=== PATIENT | male | born 1955 | race Hispanic/Latino ===

== ENCOUNTER 2018-01-01 08:06 | Day surgery (SDC) | payer OTHER ==
[~2018-01-01] VITALS: Ht 154.9 cm; Wt 82.1 kg
[~2018-01-01 08:06] MED LIST: ACET-2900 PO; ASPI-555 PO; BACL10TA PO; FAMO20TA8 PO; FURO40TA5 PO; SERT50TA12 PO; SIMV40TA5 PO; SODIUM CHLORIDE 0.9% 1000ML 1,000 ML IV ONE; VALS160T29 PO
[2018-01-01 09:12] VITALS: BP 128/64
== END 2018-01-01 10:43 | disposition home or self-care (01) ==
LOC: DAH 08:06 → ENDO 08:06
PROVIDERS: ATTEND Internal Medicine Gastroenterology
DX: Z12.11 Encounter for screening for malignant neoplasm of colon (principal); R00.1 Bradycardia, unspecified; R94.31 Abnormal electrocardiogram [ECG] [EKG]; Z53.8 Procedure and treatment not carried out for other reasons
CPT/HCPCS: 93005; J7030

== ENCOUNTER → 2018-02-03 | Outpatient (CLI) | payer OTHER ==
[~2018-02-03] MED LIST changes: -SODIUM CHLORIDE 0.9% 1000ML 1,000 ML IV ONE
== END | disposition home or self-care (01) ==
LOC: SHCH 15:34
PROVIDERS: ATTEND Internal Medicine Cardiovascular Disease
DX: I34.0 Nonrheumatic mitral (valve) insufficiency (principal); I10 Essential (primary) hypertension
CPT/HCPCS: 93306

== ENCOUNTER → 2022-08-09 | Outpatient (CLI) | payer OTHER ==
[~2022-08-09] MED LIST changes: -ACET-2900 PO; +ACET-3194 PO; -ASPI-555 PO; +ASPI-556 PO; +LOSA25TA41 PO; +SERT-439 PO; -SERT50TA12 PO; +SIMV-46 PO; -SIMV40TA5 PO
== END | disposition home or self-care (01) ==
LOC: SHCH 09:48
PROVIDERS: ATTEND Internal Medicine Cardiovascular Disease
DX: I11.9 Hypertensive heart disease without heart failure (principal); R07.9 Chest pain, unspecified
CPT/HCPCS: 93306

== ENCOUNTER → 2022-12-10 | Outpatient (CLI) | payer OTHER ==
[2022-12-10 16:42] LABS: CREATININE 0.9 mg/dL (0.5-1.5); POTASSIUM 3.6 mmol/L (3.5-5.1); TOTAL PROTEIN, SERUM 7.6 g/dL (6.0-8.3)
== END | disposition home or self-care (01) ==
LOC: LAB 14:49
PROVIDERS: ATTEND Internal Medicine Cardiovascular Disease
DX: I10 Essential (primary) hypertension (principal)
CPT/HCPCS: 36415; 80053

== ENCOUNTER → 2022-12-24 | Outpatient (CLI) | payer OTHER ==
[~2022-12-24] MED LIST changes: +IOHEXOL 350 MG/ML 100ML INFUS..BTL IV ONE
== END | disposition home or self-care (01) ==
LOC: CANPRECLI → RAH 08:28
PROVIDERS: ATTEND Internal Medicine Cardiovascular Disease
DX: I25.10 Atherosclerotic heart disease of native coronary artery without angina pectoris (principal); I10 Essential (primary) hypertension; I73.9 Peripheral vascular disease, unspecified
CPT/HCPCS: 75574; Q9967

== ENCOUNTER → 2023-01-17 | Outpatient (CLI) | payer OTHER ==
[~2023-01-17] MED LIST changes: -IOHEXOL 350 MG/ML 100ML INFUS..BTL IV ONE
== END | disposition home or self-care (01) ==
LOC: SHCH 08:25
PROVIDERS: ATTEND Internal Medicine Cardiovascular Disease
DX: I70.293 Other atherosclerosis of native arteries of extremities, bilateral legs (principal)
CPT/HCPCS: 93925

== ENCOUNTER → 2024-04-28 | Outpatient (CLI) | payer OTHER | END | disposition home or self-care (01) | LOC: SHCH 14:04 | PROVIDERS: ATTEND Internal Medicine Cardiovascular Disease | DX: I10 Essential (primary) hypertension (principal); E78.5 Hyperlipidemia, unspecified | CPT/HCPCS: 93306 ==

== ENCOUNTER 2024-09-05 08:01 | Day surgery (SDC) | payer OTHER ==
[2024-09-02 09:51] LABS: BASOPHILS # (AUTO) 0.03 K/uL (0.00-0.20); BASOPHILS % (AUTO) 0.5 % (0.0-5.0); EOSINOPHILS # (AUTO) 0.14 K/uL (0.00-0.70); EOSINOPHILS % (AUTO) 2.2 % (0.0-8.0); HEMATOCRIT 44.8 % (42-54); IMMATURE GRANULOCYTE ABSOLUTE 0.03 K/uL (0-1); LYMPHOCYTES # (AUTO) 2.2 K/uL (1.0-4.8); LYMPHOCYTES % (AUTO) 34.9 % (21.0-51.0); MEAN CORPUSCULAR HEMOGLOBIN 28.7 pg (27.0-33.0); MEAN CORPUSCULAR HGB CONC 33.3 g/dL (32.0-36.0); MEAN CORPUSCULAR VOLUME 86.3 fL (79-99); MONOCYTES # (AUTO) 0.5 K/uL (0.1-1.0); MONOCYTES % (AUTO) 7.2 % (3.0-13.0); NEUTROPHILS # (AUTO) 3.4 K/uL (1.8-7.7); NEUTROPHILS % (AUTO) 54.7 % (40.0-77.0); PLATELET COUNT (AUTO) 194 K/uL (130-400); RED BLOOD CELL COUNT(AUTO) 5.19 MIL/uL (4.50-6.20); RED CELL DISTRIBUTION WIDTH 14.3 % (11.0-15.5); WHITE BLOOD COUNT (AUTO) 6.3 K/uL (4.8-10.8)
[2024-09-02 10:00] LABS: POTASSIUM 4.2 mmol/L (3.5-5.1)
[2024-09-02 10:04] LABS: APPEARANCE,URINE CLEAR (CLEAR); BILIRUBIN,URINE NEGATIVE (NEGATIVE); COLOR,URINE LIGHT-YELLOW (YELLOW); GLUCOSE, URINE (UA) NEGATIVE (NEGATIVE); KETONES,URINE NEGATIVE (NEGATIVE); LEUKOCYTE ESTERASE ,URINE NEGATIVE Leu/uL (NEGATIVE); NITRATE,URINE NEGATIVE (NEGATIVE); OCCULT BLOOD,URINE NEGATIVE (NEGATIVE); PROTEIN,URINE NEGATIVE (NEGATIVE); UROBILINOGEN,URINE 0.2 mg/dL (0.2-1.0)
[2024-09-02 10:06] VITALS: BP 161/69; PULSE 71; RESP 18; TEMP 99.1
[2024-09-02 10:06] LABS: ADD UA MICROSCOPIC NO
[2024-09-02 10:11] LABS: INR 1.01 (0.85-1.15); PROTHROMBIN TIME 10.9 SEC (9.6-11.6)
[2024-09-02 10:12] LABS: PARTIAL THROMBOPLASTIN TIME 26.1 SEC (26.3-35.5)
[2024-09-02 10:28] LABS: B-TYPE NATRIURETIC PEPTIDE 12 pg/mL (0-100)
--- NOTE | 2024-09-02 10:49 | HMCIMG ---
CHEST 1VW HISTORY: Preop COMPARISON: May 02, 2018 FINDINGS: A frontal projection of the chest was obtained. No acute pulmonary infiltrates is seen. The heart is borderline enlarged. Degenerative changes are seen. Aortic calcifications are seen. IMPRESSION: 1. No acute pulmonary infiltrate is seen.
--- NOTE | 2024-09-02 10:50 | NUR ---
REPORT DR RAE INFORMED OF HEMORRHOID INFECTION AND ANTIBIOTICS PRESCRIBED, PT WITH LOW GRADE TEMP. OK TO PROCEED AND REEVAL ON THURSDAY
--- NOTE | 2024-09-02 10:52 | EKG ---
[facility] Test Date: 2024-09-02 Test Time: 10:37:31 Pat Name: ROXI JIMENEZ Department: [facility] Room: Gender: M Spike Machine Feeder: [id number] : 1955 Requested By: Mercy RAE Order Number: [id number] Reading MD: Theo Ruiz Measurements Intervals [place] Rate: 68 P: 40 LA: 158 QRS: -79 QRSD: 114 T: 87 QT: 402 QTc: 428 Interpretive Statements Sinus rhythm LAD, consider left anterior fascicular block Probable anterior infarct, age indeterminate Compared to ECG 05/02/2018 17:16:23 No significant changes Electronically Signed On 09-04-2024 17:35:14 SNACK BAR ATTENDANT by Theo Ruiz Please click the below link to view image of tracing.
[2024-09-05] VITALS (15 sets, daily range): BP systolic 105–157; BP diastolic 43–73; PULSE 44–68; RESP 13–18; TEMP 97.5–97.9
[~2024-09-05] VITALS: Ht 154.9 cm; Wt 89.1 kg
[~2024-09-05 08:01] MED LIST changes: -ACET-3194 PO; +AMOX1TAB16 PO; +ASPI-1005 PO; +ATOR40TA71 PO; -BACL10TA PO; +CHLO25TA3 PO; +CLOP75TA32 PO; +DEXAMETHASONE OU; -FAMO20TA8 PO; -FURO40TA5 PO; +ISOS20TA85 PO; -LOSA25TA41 PO; +LOTE8.3D OP; +METR-172 PO; +NEOMYCIN OU; +NITR0.4T50 SL; +PANT40TA54 PO; +POLYMYXIN B OU; -SERT-439 PO; -SIMV-46 PO; +TAMS-1 PO; +TERB250T89 PO; +TYLENOL ARTHRITIS PO; -VALS160T29 PO
[2024-09-05] MEDS: 0.9%NACL 1000ML 1,000 ML IV SCH (08:55)
[2024-09-05] MEDS ORDERED: VALS320T16 PO (09:09)
[2024-09-05] MEDS ORDERED: LIDOCAINE HCL 400MG/20ML VIAL ONE (13:13)
[2024-09-05] MEDS ORDERED: niCARDIpine 25MG INJ IV ONE (13:14)
[2024-09-05] MEDS ORDERED: HEParin 10,000 UNIT/10ML (1,000 UNIT/ML) VIAL ONE (13:14)
[2024-09-05] MEDS ORDERED: HEParin-NS 1,000 UNIT/500 ML 1,000 ML IV ONE (13:14)
[2024-09-05] MEDS ORDERED: SODIUM BICARB 50MEQ 50ML VIAL 50 ML ONE (13:14)
[2024-09-05] MEDS ORDERED: IOHEXOL 350 MG/ML 100ML INFUS..BTL IV ONE (13:14)
[2024-09-05] MEDS ORDERED: NITROGLYCERIN 50MG VIAL ONE (13:15)
[2024-09-05] MEDS ORDERED: MEPERIDINE-PF 25 MG/ML SYG ONE ×3 (13:26→13:43)
[2024-09-05] MEDS ORDERED: MIDAZOLAM HCL 1 MG/ML 2ML VIAL ONE ×3 (13:26→13:43)
[2024-09-05] MEDS ORDERED: ASPIRIN 325MG EC TAB PO ONE (14:27)
[2024-09-05] MEDS ORDERED: cloPIDOgrel 300MG TAB ONE (14:27)
[2024-09-05] MEDS ORDERED: 0.9%NACL 1000ML 1,000 ML IV SCH (15:00)
--- NOTE | 2024-09-05 15:37 | PR ---
PROCEDURES: * Selective right and left coronary arteriogram. * Balloon angioplasty and stenting of the LAD. * Balloon angioplasty and stenting of the circumflex. * Conscious sedation. INDICATIONS: * Recurrent angina. * Abnormal coronary CTA. 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 COMPLICATIONS: None. TOTAL CONTRAST: 100 mL. APPROACH: Right radial approach. DESCRIPTION OF PROCEDURE: The patient was taken to the cardiac cardiac cath rn after the appropriate operative consents were signed. He was prepped and draped in the usual fashion. After conscious sedation was administered, the right radial artery region was infiltrated with 2% Xylocaine without epinephrine. A 6-Romanian slender radial sheath was advanced in retrograde fashion over the indwelling wire by the modified Seldinger technique. A TIG 4 catheter was advanced and positioned selectively in the right coronary artery. This was imaged in multiplane. This was a moderately large vessel that gave rise to sinus vince artery, acute marginal, large PDA and large branching PLVB system. The proximal RCA had a 50% lesion and the distal RCA had a tandem 40% stenotic lesions. The catheter would not engaged or seat well in the left main, so we elected to utilize JL3.5, which was exchanged over an indwelling wire and engaged in the ostium of the left main. The left main was imaged in multiplane. This was a long vessel that was free of significant stenotic lesions. It bifurcated into LAD, and circumflex. Circumflex was a moderately sized vessel that had an 80% lesion in its proximal portion before giving rise to an obtuse marginal 1 that was tortuous. The ongoing circumflex was occluded distal to the obtuse marginal 1, however, this was a small vessel that was seen to fill retrograde via right to left collaterals. The LAD was a large vessel that gave rise to several diagonal branches and septal perforators. The first diagonal was a moderately sized vessel that gave rise to 2 branches. It had a 70% lesion in its proximal portion. The LAD was large vessel that had 99% stenotic lesion just distal to the first septal income tax auditor. There was LUISANA 0-1.5 in the LAD. Given the patient's presentation, symptoms, and his abnormalities on his ancillary studies, we elected to proceed with revascularization of the LAD and a circumflex. The patient had XB3 catheter selected, which was advanced over an indwelling wire and engaged into the left main. A 0.014 wire was advanced, traversed the lesion in the LAD. The lesion was predilated with a 3.0 NC balloon, which improved the LUISANA flow to 2. At this point, an Barrera 3.0 x 34 drug-eluting stent was advanced in the area of stenosis and inflated and dilated to a 3.1 mm size with good final angiographic results. The wire was then redirected and engaged into the OM. The circumflex was managed with placement of a 3.0 x 15 Barrera Willoughby stent, which was deployed to 14 atmospheres at 3.1 mm size with good angiographic results. At this point, the catheter was removed over an indwelling wire. A sheath of the radial artery was removed and a radial band was applied. The patient tolerated the procedure well and left the cardiac cardiac cath rn in stable condition. FINAL IMPRESSION: * Severe coronary artery disease. * Apical aneurysmal segment by noninvasive studies with probable thrombus. * Successful balloon angioplasty and stent placement in the proximal to mid LAD with a 3.0 x 34 drug-eluting Barrera Willoughby stent. * Successful balloon angioplasty and stenting of the circumflex with a 3.0 x 15 Barrera Willoughby drug-eluting stent with good angiographic results. PLAN: Continue to optimize medical management. TID: [id number] RECEIPT: [id number]
--- NOTE | 2024-09-05 17:00 | NUR ---
REPORT RCV'D FROM NELLIE MARCH, RN, PT FAMILY AT BEDSIDE. RT RADIAL VASC BAND REMOVED W CLEANING AND ASEPTIC DSG APPLIED. DISTAL PULSES INTACT, PT DENIES ANY NEURO DEFICITS. ENG 7 SPAN INSTRUCTIONS COVERED WITH BILINGUAL SON PRESENT. MANY QUESTIONS ANSWERED AND CONFIRMED UNDERSTANDING.
--- NOTE | 2024-09-05 18:30 | NUR ---
lt ac piv removed w tip intact, dsg applied, assist w street clothes. Rt radial site, distal FUEL OPERATOR and pulses baseline. pt & deny necessity or c/o, with all belongings to sons car & care in no noted or verbalized distress. STENT CARD & DIAGRAMS PREVIOUSLY GIVEN TO PATIENT. COPIES ENG & SPAN INSTRUCTIONS. STRESSED IMPORTANCE OF ASA & PLAVIX.
== END 2024-09-05 18:40 | disposition home or self-care (01) ==
LOC: DAH 08:01
PROVIDERS: ATTEND Internal Medicine Cardiovascular Disease
DX: I25.118 Atherosclerotic heart disease of native coronary artery with other forms of angina pectoris (principal); R94.39 Abnormal result of other cardiovascular function study; I11.0 Hypertensive heart disease with heart failure; I50.42 Chronic combined systolic (congestive) and diastolic (congestive) heart failure; I25.5 Ischemic cardiomyopathy; R06.02 Shortness of breath; E66.9 Obesity, unspecified; M19.90 Unspecified osteoarthritis, unspecified site; Z95.5 Presence of coronary angioplasty implant and graft; E78.5 Hyperlipidemia, unspecified; Z68.38 Body mass index [BMI] 38.0-38.9, adult; Z79.899 Other long term (current) drug therapy
CPT/HCPCS: 80048; 83880; 85025; 85610; 85730; 81003; 36415; 71045; 93005; 93454; 85347; A4223 ×3; Q9965; C1769; C1725; C1874 ×2; A4649; C1894; C1887; J3490 ×4; J7030; J1644 ×2; J2250 ×3; J2175 ×3; Q9967; A4215; A4222; A4221; A4663; A4216; A4606; C9600 ×2; 96360; 96361; 99156; 99157; C9601

== ENCOUNTER → 2024-12-15 | Outpatient (CLI) | payer OTHER ==
[~2024-12-15] MED LIST changes: +ISOS-58 PO; -ISOS20TA85 PO; +VALS320T16 PO
--- NOTE | 2024-12-19 15:11 | HMCSR ---
APPROVED REPORT Bilateral Lower Extremity Venous Study for DVT., Venous Competence. Indications venous Insuff Vein Imaging CFV (R): Normal flow, augmentation and compression. No evidence of DVT. 11.2mm 561ms of reflux. SFJ (R): Normal flow, augmentation and compression. No evidence of DVT. FEM (R): Normal flow, augmentation and compression. No evidence of DVT. POP (R): , Partially Compressible, Thrombus DFV (R): Normal flow, augmentation and compression. No evidence of DVT. PTV (R): Normal flow, augmentation and compression. No evidence of DVT. Peroneals (R): Normal flow, augmentation and compression. No evidence of DVT. CFV (L): Normal flow, augmentation and compression. No evidence of DVT. 10.6mm 239ms of reflux. SFJ (L): Normal flow, augmentation and compression. No evidence of DVT. FEM (L): Normal flow, augmentation and compression. No evidence of DVT. POP (L): Normal flow, augmentation and compression. No evidence of DVT. DFV (L): Normal flow, augmentation and compression. No evidence of DVT. PTV (L): Normal flow, augmentation and compression. No evidence of DVT. Peroneals (L): Normal flow, augmentation and compression. No evidence of DVT. Technologist Impression Positive for DVT on RT. Pop V., Partially Compressible, Partial flow seen. Verbal preliminary given to nurse Galvez at [facility], she would relay the message to Donna Peguero NP regarding findings, pt. waited in the lobby and left without instructions from [facility]. No C all from [facility]. Deep veins of LT. lower extremity appear patent and compressible without thrombus. No significant deep vein reflux seen. No superficial venous insufficiency seen. RGSV junction 5.7mm 344ms thigh 3.0mm 0.0ms knee 3.9mm 0.0ms calf 3.5mm 0.0ms RSSV Prox 2.6mm 0.0ms mid 2.0mm 0.0ms LGSV junction 4.3mm 144ms thigh 3.4mm 0.0ms knee 3.4mm 0.0ms calf 2.3mm 0.0ms LSSV prox (Collapsed) Mid (Collapsed) Conclusion Positive for DVT on RT. Pop V., Partially Compressible, Partial flow seen. Deep veins of LT. lower extremity appear patent and compressible without thrombus. No significant deep vein reflux seen. No superficial venous insufficiency seen. Conclusion Positive for DVT on RT. Pop V., Partially Compressible, Partial flow seen. Deep veins of LT. lower extremity appear patent and compressible without thrombus. No significant deep vein reflux seen. No superficial venous insufficiency seen.
== END | disposition home or self-care (01) ==
LOC: SHCH 09:55
PROVIDERS: ATTEND Internal Medicine Cardiovascular Disease
DX: I87.2 Venous insufficiency (chronic) (peripheral) (principal)
CPT/HCPCS: 93970